=== PATIENT | female | born 1990 | race Hispanic/Latino ===

== ENCOUNTER 2018-08-04 09:21 | Emergency (ER) | payer MEDICAID ==
[2018-08-04] MEDS ORDERED: ACETAMINOPHEN 325 MG TAB ONE (10:01)
[2018-08-04 10:14] LABS: BASOPHILS % (AUTO) 0.2 % (0.0-5.0); HEMATOCRIT 39.2 % (36-48); LYMPHOCYTES % (AUTO) 6.1 % (21.0-51.0); MEAN CORPUSCULAR HEMOGLOBIN 31.3 pg (27.0-33.0); MEAN CORPUSCULAR HGB CONC 34.2 g/dL (32.0-36.0); MEAN CORPUSCULAR VOLUME 91.5 fL (79-99); MONOCYTES % (AUTO) 6.2 % (3.0-13.0); NEUTROPHILS % (AUTO) 87.5 % (40.0-77.0); NUCLEATED RED BLOOD CELLS 0.1 % (0.0-0.19); PLATELET COUNT (AUTO) 296 K/uL (130-400); RED BLOOD CELL COUNT(AUTO) 4.28 MIL/uL (4.00-5.50); RED CELL DISTRIBUTION WIDTH 12.5 % (11.0-15.5); WHITE BLOOD COUNT (AUTO) 8.9 K/uL (4.8-10.8)
[2018-08-04 10:16] LABS: APPEARANCE,URINE Clear (CLEAR); BILIRUBIN,URINE Negative (NEGATIVE); COLOR,URINE Yellow (YELLOW); GLUCOSE, URINE (UA) Negative (NEGATIVE); KETONES,URINE 15 mg/dL (NEGATIVE); LEUKOCYTE ESTERASE ,URINE Trace (NEGATIVE); NITRATE,URINE Negative (NEGATIVE); OCCULT BLOOD,URINE Trace (NEGATIVE); PROTEIN,URINE Negative (NEGATIVE)
[2018-08-04 10:24] LABS: CREATININE 0.8 mg/dL (0.5-1.5); POTASSIUM 3.5 mmol/L (3.5-5.1)
[2018-08-04 10:34] LABS: BACTERIA,URINE Few /HPF (None Seen); WBC,URINE 0-1 /HPF (0-1)
[2018-08-04 10:54] LABS: ALBUMIN 3.5 g/dL (3.5-5.0); BILIRUBIN,TOTAL 0.3 mg/dL (0.2-1.0)
== END 2018-08-04 11:16 | disposition home or self-care (01) ==
LOC: EDH 09:21
DX: O23.41 Unspecified infection of urinary tract in pregnancy, first trimester (principal); M54.5 Low back pain; Z3A.08 8 weeks gestation of pregnancy; Z88.0 Allergy status to penicillin; Z98.890 Other specified postprocedural states
CPT/HCPCS: 36415; 76801; 80053; 81001; 84702; 85025

== ENCOUNTER 2019-05-10 20:27 | Emergency (ER) | payer MEDICAID ==
[2019-05-10 20:57] LABS: APPEARANCE,URINE CLEAR (CLEAR); BILIRUBIN,URINE NEGATIVE (NEGATIVE); COLOR,URINE YELLOW (YELLOW); GLUCOSE, URINE (UA) NEGATIVE (NEGATIVE); KETONES,URINE NEGATIVE (NEGATIVE); LEUKOCYTE ESTERASE ,URINE NEGATIVE (NEGATIVE); NITRATE,URINE NEGATIVE (NEGATIVE); OCCULT BLOOD,URINE SMALL (NEGATIVE); PH,URINE 6.5 (5.0-8.0); PROTEIN,URINE 30 mg/dL (NEGATIVE); UROBILINOGEN,URINE 0.2 mg/dL (0.2-1.0)
[2019-05-10] MEDS ORDERED: KETOROLAC TROMETHAMINE 60 MG/2 ML VIAL ONE (21:02)
[2019-05-10] MEDS ORDERED: SODIUM CHLORIDE 0.9% 1000ML 1,000 ML IV ONE (21:02)
[2019-05-10 21:04] LABS: HCG,QUAL RESULT NEGATIVE (NEGATIVE)
[2019-05-10 21:25] LABS: BACTERIA,URINE Few /HPF (None Seen); WBC,URINE 0-1 /HPF (0-1)
[2019-05-10 21:26] LABS: BASOPHILS % (AUTO) 0.5 % (0.0-5.0); EOSINOPHILS % (AUTO) 1.2 % (0.0-8.0); HEMATOCRIT 37.3 % (36-48); LYMPHOCYTES % (AUTO) 16.4 % (21.0-51.0); MEAN CORPUSCULAR HEMOGLOBIN 28.8 pg (27.0-33.0); MEAN CORPUSCULAR HGB CONC 32.6 g/dL (32.0-36.0); MEAN CORPUSCULAR VOLUME 88.2 fL (79-99); MONOCYTES % (AUTO) 13.4 % (3.0-13.0); NEUTROPHILS % (AUTO) 68.5 % (40.0-77.0); PLATELET COUNT (AUTO) 302 K/uL (130-400); RED BLOOD CELL COUNT(AUTO) 4.22 MIL/uL (4.00-5.50); RED CELL DISTRIBUTION WIDTH 14.1 % (11.0-15.5); WHITE BLOOD COUNT (AUTO) 11.4 K/uL (4.8-10.8)
[2019-05-10 21:28] LABS: MUCUS,URINE Few LPF (None Seen); SQUAMOUS EPITHELIAL CELL,UR Few /HPF (0-2)
[2019-05-10 21:38] LABS: CREATININE 0.7 mg/dL (0.5-1.5); INR 0.94 (0.85-1.15); PARTIAL THROMBOPLASTIN TIME 30.6 SEC (26.3-35.5); POTASSIUM 3.5 mmol/L (3.5-5.1); PROTHROMBIN TIME 9.9 SEC (9.6-11.6)
[2019-05-10 21:43] LABS: ALBUMIN 3.6 g/dL (3.5-5.0); BILIRUBIN,TOTAL 0.3 mg/dL (0.2-1.0); TOTAL PROTEIN, SERUM 8.3 g/dL (6.0-8.3)
[2019-05-10] MEDS ORDERED: LIDOCAINE HCL 1% 20 ML VIAL ONE (22:01)
[2019-05-10] MEDS ORDERED: SULFAMETHOX-TMP DS 800/160 TAB ONE (22:09)
== END 2019-05-10 23:06 | disposition home or self-care (01) ==
LOC: EDH 20:27
DX: L02.31 Cutaneous abscess of buttock (principal); Z88.0 Allergy status to penicillin
CPT/HCPCS: 10061; 36415; 71045; 80053; 81001; 81025; 83605; 84484; 85025; 85610; 85730; 87040 ×2; 96374; 99285; J1885; J7030

== ENCOUNTER 2021-02-20 13:10 | Emergency (ER) | payer MEDICAID ==
[2021-02-20] MEDS ORDERED: KETOROLAC TROMETHAMINE 60 MG/2 ML VIAL ONE (13:41)
[2021-02-20] MEDS ORDERED: DIAZEPAM 5 MG TABLET ONE (13:42)
[2021-02-20] MEDS ORDERED: HYDROCODONE/ACETAMINOPHEN 10/325 MG TAB ONE (13:42)
== END 2021-02-20 15:01 | disposition home or self-care (01) ==
LOC: EDH 13:10
DX: M54.41 Lumbago with sciatica, right side (principal); Z88.0 Allergy status to penicillin; Z98.890 Other specified postprocedural states
CPT/HCPCS: 72100; 96372; 99283; J1885

== ENCOUNTER 2021-04-16 22:09 | Emergency (ER) | payer MEDICAID ==
[2021-04-16] MEDS ORDERED: KETOROLAC TROMETHAMINE 60 MG/2 ML VIAL ONE (22:49)
[2021-04-16] MEDS ORDERED: CYCLOBENZAPRINE HCL 10 MG TABLET ONE (22:49)
== END 2021-04-16 23:30 | disposition home or self-care (01) ==
LOC: EDH 22:09
DX: S40.022A Contusion of left upper arm, initial encounter (principal); R03.0 Elevated blood-pressure reading, without diagnosis of hypertension; Z88.0 Allergy status to penicillin; Z98.890 Other specified postprocedural states; X58.XXXA Exposure to other specified factors, initial encounter; Y93.89 Activity, other specified; Y92.89 Other specified places as the place of occurrence of the external cause; Y99.8 Other external cause status
CPT/HCPCS: 73060; 73080; 73090; 96372; 99284; J1885